=== PATIENT | female | born 1990 | race Caucasian/White ===

== ENCOUNTER 2019-11-27 14:13 | Inpatient (IN) | payer OTHER ==
[~2019-11-27] VITALS: Ht 167.6 cm; Wt 99.5 kg
[2019-11-27 14:19] VITALS: Ht 167.6 cm; Wt 99.5 kg
[2019-11-27 15:13] LABS: BASOPHIL % 0.2 % (0-2); PLATELET COUNT 229 x10^3mcL (130-400)
[2019-11-27 15:17] LABS: UA SPECIFIC GRAVITY >=1.030 (1.005-1.035); microscopic required? YES; urine erythrocyte 3+ (NEGATIVE)
[2019-11-27 18:10] VITALS: BP 101/77
[2019-11-27 18:14] LABS: AMPHETAMINE QUAL UR NONE DETECTED (See below)
[2019-11-27 20:00] VITALS: BP 147/67
[2019-11-28 05:41] VITALS: BP 111/65
[2019-11-28 07:32] LABS: CARBON DIOXIDE 26.3 mmol/L (21-32); CHLORIDE SERUM 106 mmol/L (98-107); CREATININE SERUM 0.6 mg/dL (0.6-1.0); GFR1 > 60 mL/min; GLUCOSE SERUM 164 mg/dL (74-106); MAGNESIUM 1.8 mg/dL (1.8-2.4); PHOSPHOROUS 3.4 mg/dL (2.5-4.9); SODIUM SERUM 140 mmol/L (136-145)
[2019-11-28 07:51] LABS: BASOPHIL % 0.1 % (0-2); PLATELET COUNT 164 x10^3mcL (130-400); RED CELL DISTRIBUTION WIDTH 13.4 % (11.5-14.5)
[2019-11-28 08:01] VITALS: BP 106/64
[2019-11-28 12:09] VITALS: BP 111/62
[2019-11-28 16:51] VITALS: BP 142/71
[2019-11-28 19:44] VITALS: BP 132/77
[2019-11-29 04:58] VITALS: BP 115/52
[2019-11-29 07:31] LABS: CARBON DIOXIDE 26.8 mmol/L (21-32); CHLORIDE SERUM 110 mmol/L (98-107); CREATININE SERUM 0.6 mg/dL (0.6-1.0); GFR1 > 60 mL/min; GLUCOSE SERUM 116 mg/dL (74-106); MAGNESIUM 1.9 mg/dL (1.8-2.4); PHOSPHOROUS 2.1 mg/dL (2.5-4.9); POTASSIUM SERUM 3.6 mmol/L (3.5-5.1); SODIUM SERUM 146 mmol/L (136-145)
[2019-11-29 08:13] VITALS: BP 116/62
[2019-11-29 08:34] LABS: BASOPHIL % 0.4 % (0-2); PLATELET COUNT 158 x10^3mcL (130-400); RED CELL DISTRIBUTION WIDTH 13.7 % (11.5-14.5)
[2019-11-29 12:08] VITALS: BP 125/83
[2019-11-29 14:24] LABS: rbc morphology (normal/abnorm) ABNORMAL (NORMAL)
[2019-11-29 17:13] VITALS: BP 123/75
[2019-11-29 20:14] VITALS: BP 135/78
[2019-11-30 05:03] VITALS: BP 116/73
[2019-11-30 06:34] LABS: BASOPHIL % 0.3 % (0-2); PLATELET COUNT 160 x10^3mcL (130-400); RED CELL DISTRIBUTION WIDTH 13.3 % (11.5-14.5)
[2019-11-30 07:00] LABS: CHLORIDE SERUM 108 mmol/L (98-107); CREATININE SERUM 0.5 mg/dL (0.6-1.0); GFR1 > 60 mL/min; GLUCOSE SERUM 117 mg/dL (74-106); POTASSIUM SERUM 3.5 mmol/L (3.5-5.1); SODIUM SERUM 143 mmol/L (136-145)
[2019-11-30 08:48] VITALS: BP 131/75
[2019-11-30] MEDS ORDERED: APAP/HYDROCODON1 T13 PO (10:42)
[2019-11-30 11:29] VITALS: BP 116/73
== END 2019-11-30 14:21 | disposition home or self-care (01) | DRG 817 ==
LOC: ED 14:13 → MU 17:30 → DU 17:30 → MU 17:55 → DU 11-28 10:34
PROVIDERS: Emergency Medicine; Internal Medicine; ADMIT Internal Medicine
PROC: 30233N1 Transfusion of Nonautologous Red Blood Cells into Peripheral Vein, Percutaneous Approach (ICD-10-PCS; principal; 2019-11-29)
PROC: 0UB64ZZ Excision of Left Fallopian Tube, Percutaneous Endoscopic Approach (ICD-10-PCS; 2019-11-29)
PROC: 10T24ZZ Resection of Products of Conception, Ectopic, Percutaneous Endoscopic Approach (ICD-10-PCS; 2019-11-29)
DX: O00.102 Left tubal pregnancy without intrauterine pregnancy (principal); K66.1 Hemoperitoneum; D62 Acute posthemorrhagic anemia; E11.9 Type 2 diabetes mellitus without complications; I10 Essential (primary) hypertension
CPT/HCPCS: 97116-GP; G0378; J0330; J0690; J0696; J1170; J2270; J2405; J2704; J2710; J3010; J3490; J7030; J7050; J7120; P9016; Q0092